=== PATIENT | female | born 1955 | race Caucasian/White ===

== ENCOUNTER 2018-10-17 12:44 | Outpatient (CLI) | payer MEDICARE, OTHER ==
[2018-10-17 13:29] LABS: BASOPHILS % 0.6 (0.0-1.5); EOSINOPHILS % 4.6 % (0.0-6.8); MONOCYTES % 5.5 % (0.0-11.0); NEUTROPHILS # 5.1 # k/uL (1.4-7.7)
== END 2018-10-17 12:50 ==
LOC: LAB 12:44
PROVIDERS: ATTEND Orthopaedic Surgery
DX: Z01.812 Encounter for preprocedural laboratory examination (principal); M75.121 Complete rotator cuff tear or rupture of right shoulder, not specified as traumatic
CPT/HCPCS: 36415; 85025; 85610; 85730